=== PATIENT | female | born 1965 | race Two or more races ===

== ENCOUNTER 2025-04-21 16:29 | Emergency (ER) | payer OTHER ==
[~2025-04-21] VITALS: Ht 154.9 cm; Wt 67.1 kg
[2025-04-21 16:29] VITALS: BP 115/65; TEMP 98; O2SAT 97
== END 2025-04-21 18:41 | disposition home or self-care (01) ==
LOC: ER 16:38
DX: M79.605 Pain in left leg (principal)
CPT/HCPCS: 93971-TC